=== PATIENT | female | born 1955 | race Caucasian/White ===

== ENCOUNTER → 2017-08-25 | Outpatient (CLI) | payer BC ==
[2017-08-25 13:14] VITALS: BMI 54.8
== END | disposition home or self-care (01) ==
LOC: BARWHC3 09:20
PROVIDERS: ATTEND Surgery
DX: E66.01 Morbid (severe) obesity due to excess calories (principal)
CPT/HCPCS: 97804

== ENCOUNTER 2017-09-22 07:46 | Inpatient (IN) | payer BC ==
[~2017-09-22 07:46] MED LIST: DEXAMETHASONE SOD PHOSPHATE 10 MG/ML 1 ML VIAL IV ONE; ENOXAPARIN 40 MG/0.4 ML SYRINGE SQ ONE; HYDROmorphone 0.5 MG/0.5 ML SYRINGE IVP PRN; LACTATED RINGERS 1,000 ML IV SCH; LIDOCAINE 1% 20 ML VIAL (10MG/ML) FOR IV START INTRADERMA PRN; ONDANSETRON 4 MG/2 ML VIAL IVP ONE; SCOPOLAMINE 1.5MG/72HR PATCH TRANSDERM ONE
[2017-09-22] MEDS ORDERED: METHYLENE BLUE 30 MG in DEXTROSE 5% IN WATER 500 ML IRRIGATION ONE ×2 (07:49)
--- NOTE | 2017-09-22 08:34 | P.GSHP ---
History of Present Illness H&P Date: 09/22/17 Chief Complaint: Morbid obesity Patient well-known to our service. Patient underwent laparoscopic banding over 10 years ago. She has had issues with intermittent vomiting and reflux. She believes that she had a hiatal hernia repaired at the time of her initial LAP- BAND placement. Suffers from osteoarthritis which is in part related to her morbid recently. Not interested in gastric bypass. No history of DVT. Recent upper endoscopy negative for hiatal hernia. Past Medical History Past Medical History: GERD/Reflux, Hypertension, Osteoarthritis (OA), Thyroid Disorder Additional Past Medical History / Comment(s): HAD RADIATION PILL FOR HYPERTHYROID, recent bronchitis now resolved History of Any Multi-Drug Resistant Organisms: None Reported Past Surgical History: Bariatric Surgery, Hysterectomy, Joint Replacement, Orthopedic Surgery Additional Past Surgical History / Comment(s): lap band, right knee replaced, ORIF right leg, ovarian cystectomy, ORIF right leg, colonoscopy Past Anesthesia/Blood Transfusion Reactions: Motion Sickness Smoking Status: Former smoker - Past Family History Mother Family Medical History: Cancer Medications and Allergies Home Medications Medication Instructions Recorded Confirmed Type Furosemide [Lasix] 10 mg PO DAILY PRN 05/22/17 09/10/17 History LORazepam [Ativan] 0.5 mg PO DAILY PRN 05/22/17 09/10/17 History Propranolol [Inderal] 10 mg PO DAILY 05/22/17 09/10/17 History Ranitidine HCl [Zantac] 150 mg PO BID 05/22/17 09/10/17 History Ergocalciferol [Vitamin D2] 50,000 unit PO TH 06/02/17 09/10/17 History Omeprazole [PriLOSEC] 20 mg PO AC-BRKFST #90 cap 06/04/17 09/10/17 Rx traMADol HCl [Ultram] 50 mg PO Q6H PRN 06/04/17 09/10/17 History HYDROcodone/APAP 5-325MG [[place] 1 tab PO Q6HR PRN 08/26/17 09/10/17 History 5-325] Albuterol Inhaler [Ventolin Hfa 1 - 2 puff INHALATION Q6HR PRN 09/10/17 History Inhaler] Allergies Allergy/AdvReac Type Severity Reaction Status Date / Time latex Allergy Rash/Hives Verified 09/10/17 17:38 Penicillins Allergy Rash/Hives Verified 09/10/17 17:38 Surgical - Exam Physical exam: General: Well-developed, well-nourished HEENT: Normocephalic, sclerae nonicteric Abdomen: Nontender, nondistended Extremities: No edema Neuro: Alert and oriented Assessment and Plan (1) Morbid obesity Narrative/Plan: Will proceed with lap band removal and planned sleeve gastrectomy. Risks of bleeding, infection, stricture, perforation, abscess, leak, fistula formation, peritonitis, or weight loss, chronic reflux, conversion to an open procedure, aborting the procedure, CO, PE, DVT, and . The patient understands wished to proceed. Current Visit: No Status: Acute Code(s): E66.01 - MORBID (SEVERE) OBESITY DUE TO EXCESS CALORIES SNOMED Code(s): 497104698
[2017-09-22] MEDS ORDERED: LIDOCAINE 1% INJ 10MG/ML (20 ML MDV) ONE (09:03)
[2017-09-22] MEDS ORDERED: GLYCOPYRROLATE 0.2 MG/ML 2 ML VIAL ONE (09:03)
[2017-09-22] MEDS ORDERED: PROPOFOL 10 MG/ML 20 ML VIAL IV ONE (09:03)
[2017-09-22] MEDS ORDERED: NEOSTIGMINE 1 MG/ML 10 ML VIAL ONE (09:03)
[2017-09-22] MEDS ORDERED: MIDAZOLAM 2 MG/2 ML VIAL ONE (09:03)
[2017-09-22] MEDS ORDERED: fentaNYL (PF) 50 MCG/ML 2 ML AMP ONE (09:03)
[2017-09-22] MEDS ORDERED: SUCCINYLCHOLINE CHLORIDE VIAL 200 MG/10 ML VIAL IV ONE (09:03)
[2017-09-22] MEDS ORDERED: METHYLENE BLUE 10 MG/ML (10 ML VIAL) ONE (09:03)
[2017-09-22] MEDS ORDERED: VECURONIUM 10 MG VIAL IV ONE (09:03)
[2017-09-22] MEDS ORDERED: KETAMINE 10 MG/ML 20 ML VIAL ONE (09:03)
[2017-09-22] MEDS ORDERED: HYDROcodone/APAP 10-325MG 1 EACH TAB ONE (09:03)
[2017-09-22] MEDS ORDERED: KETOROLAC 30 MG/ML 1 ML VIAL ONE (09:03)
[2017-09-22] MEDS ORDERED: ESMOLOL 100 MG/10 ML VIAL ONE (09:03)
[2017-09-22] MEDS ORDERED: HYDROmorphone (PF) 1 MG/ML ONE (09:03)
[2017-09-22] MEDS ORDERED: BUPIVACAINE (PF) 0.25% 30 ML VIAL SQ ONE ×2 (09:37)
[2017-09-22] MEDS ORDERED: LACTATED RINGERS 1,000 ML IV ONE (10:29)
[2017-09-22] MEDS ORDERED: diphenhydrAMINE 50 MG/ML 1 ML VIAL IVP PRN (11:45)
[2017-09-22] MEDS ORDERED: NALOXONE 0.4 MG/ML 1 ML VIAL IV PRN (11:45)
[2017-09-22] MEDS ORDERED: ACETAMINOPHEN IV (For NPO) 1,000 MG in EMPTY BAG 1 BAG IVPB ONE (12:00)
--- NOTE | 2017-09-22 12:21 | P.OP ---
Date of Procedure: 09/22/17 Procedure(s) Performed: PREOPERATIVE DIAGNOSIS: Morbid obesity, band intolerance, osteoporosis POSTOPERATIVE DIAGNOSIS: Same PROCEDURE: Laparoscopic lap band removal with sleeve gastrectomy SURGEON: Claudette EBL: Minimal ANESTHESIA: General COMPLICATIONS: None OPERATIVE PROCEDURE: Patient was placed in the operating table in the supine position. She was placed under general anesthesia at that time. The abdomen was prepped and draped in sterile fashion after the patient was placed in lithotomy. The previous port incision was localized and then incised using a scalpel. The port was easily excised using electrocautery. The port was noted to have some serous fluid around it. The sutures previously placed to hold the port in place were no longer present and the port was floating freely. Entrance into the peritoneal cavity occurred using a 5 mm optical trocar through the old trocar entrance site. Insufflation took place to 15 mmHg. A right subxiphoid 5 mm trocar was placed. This was then removed and the medium Kiel hook was used to elevate the left lobe of the liver anteriorly. An additional 5 mm trocar was placed under direct visualization in the left lateral upper quadrant. An additional 5 mm trocar was placed in the right upper quadrant. A 15 mm supra umbilical trocar was then placed. There were very little adhesions around the band as well. The band plication was divided using sharp dissection with the disposable sheers. There was no visible hiatal hernia. At that point I moved to the mid aspect of the greater curvature the stomach. The short gastric vasculature was divided using a LigaSure device proximally. I then switched and divided the short gastrics distally to a 3-4 cm from the pylorus. The dissection took place up to the left diaphragmatic crura at that point. The posterior short gastrics were likewise divided using the LigaSure device. Once the stomach was fully mobilized the blunt tipped 40- British bougie dilator was advanced into the stomach and advanced all the way to the prepyloric location. A black echelon 60 stapler was utilized and fired tangentially across the antrum taking care to avoid narrowing at the incisura angularis. Subsequent firings of the stapler took place. A total of 6 green echelon 60 staplers with seam guard took place proximally staying on the outer edge of our dilator. The previous band site had a very thin rind that was excised sharply. The oral gastric tube was reinserted. The stomach was insufflated with approximately 100 mL of methylene blue. No evidence of leak or obstruction was seen. Tisseel fibrin glue was then sprayed along the entire length of the staple line. No bleeding was identified. The distal aspect of the sleeve was then reapproximated to the gastrosplenic and gastrocolic ligament using a short running 20 strata fix suture. This was done to prevent kinking or twisting of the sleeve. The stomach remnant was removed from the 15 mm trocar site without difficulty. The fascia at the 15 more site was closed using interrupted 0 Vicryl sutures with the laparoscopic suture passer and Tej Emma technique. The insufflation was evacuated. The skin at all 5 incisions were closed using 4-0 Monocryl sutures. A 3-0 Vicryl subcutaneous suture was placed at the previous port site. Dermabond was used on the incision site. DISPOSITION: Stable to recovery room
[2017-09-22] MEDS: 0.9% NACL WITH KCL 20 MEQ/L 1,000 ML IV SCH ×2 (12:36→20:09)
[2017-09-22] MEDS: ALBUTEROL NEBULIZED 2.5 MG/3 ML INHALATION SCH ×3 (12:59→20:19)
[2017-09-22] MEDS: KETOROLAC 30 MG/ML 1 ML VIAL IVP SCH ×2 (13:12→17:35)
[2017-09-22] MEDS: HYDROmorphone 0.5 MG/0.5 ML SYRINGE IVP PRN ×2 (13:13→20:09)
[2017-09-22 15:15] VITALS: BMI 52.8
--- NOTE | 2017-09-22 16:16 | P.CONS ---
History of Present Illness - Reason for Consult Consult date: 09/22/17 Medical management of hypertension hypothyroidism and postoperative care - Chief Complaint Sleeve gastrectomy surgery - History of Present Illness Patient is a 62-year-old female with a known history of morbid obesity and history of laparoscopic banding surgery done about 10 years ago, hypertension, hypothyroidism was admitted to the hospital for sleeve gastrectomy and LAP-BAND removal. Patient has been having GERD-like symptoms and not tolerated lab done very well. Patient had endoscopy done recently showed no evidence of hiatal hernia. Patient was admitted to the hospital for elective sleeve gastrectomy. Patient tolerated the surgery very well. Currently pain is controlled. Patient does have some nausea. No episodes of vomiting. No fever no chills. No chest pain or short of breath. No headache or dizziness. Review of Systems Constitutional: Patient denies any fever or chills . No generalized weakness or weight loss. Abdomen: Patient denied nausea vomiting and diarrhea and abdominal pain. Cardiovascular: Patient denies any chest pain or short of breath no palpitations. Respiratory: patient denied any cough is from production. No shortness of breath Neurologic: Patient denied any numbness or tingling headache. Musculoskeletal: Patient denies any complaints of joint swelling or deformity. Skin: Negative Psychiatric: Negative Endocrine: No heat or cold intolerance. No recent weight gain. Genitourinary: No dysuria or hematuria. All other 14 point ROS negative except the above Past Medical History Past Medical History: GERD/Reflux, Hypertension, Osteoarthritis (OA), Thyroid Disorder Additional Past Medical History / Comment(s): HAD RADIATION PILL FOR HYPERTHYROID, recent bronchitis now resolved History of Any Multi-Drug Resistant Organisms: None Reported Past Surgical History: Bariatric Surgery, Hysterectomy, Joint Replacement, Orthopedic Surgery Additional Past Surgical History / Comment(s): lap band, right knee replaced, ORIF right leg, ovarian cystectomy, ORIF right leg, colonoscopy Past Anesthesia/Blood Transfusion Reactions: Motion Sickness Smoking Status: Former smoker - Past Family History Mother Family Medical History: Cancer Medications and Allergies Home Medications Medication Instructions Recorded Confirmed Type Furosemide [Lasix] 10 mg PO DAILY PRN 05/22/17 09/22/17 History LORazepam [Ativan] 0.5 mg PO DAILY PRN 05/22/17 09/22/17 History Propranolol [Inderal] 10 mg PO DAILY 05/22/17 09/22/17 History Ranitidine HCl [Zantac] 150 mg PO BID 05/22/17 09/22/17 History Ergocalciferol [Vitamin D2] 50,000 unit PO TH 06/02/17 09/22/17 History Omeprazole [PriLOSEC] 20 mg PO AC-BRKFST #90 cap 06/04/17 09/22/17 Rx traMADol HCl [Ultram] 50 mg PO Q6H PRN 06/04/17 09/22/17 History HYDROcodone/APAP 5-325MG [[place] 1 tab PO Q6HR PRN 08/26/17 09/22/17 History 5-325] Albuterol Inhaler [Ventolin Hfa 1 - 2 puff INHALATION RT-Q6H PRN 09/10/17 History Inhaler] Omeprazole [PriLOSEC] 20 mg PO AC-BRKFST #90 cap 09/22/17 Rx Allergies Allergy/AdvReac Type Severity Reaction Status Date / Time latex Allergy Rash/Hives Verified 09/22/17 12:47 Penicillins Allergy Rash/Hives Verified 09/22/17 12:47 Physical Exam Vitals: Vital Signs Temp Pulse Pulse Resp BP Pulse Ox 09/22/17 13:10 54 L 16 09/22/17 13:03 59 L 16 95 09/22/17 12:15 75 16 134/71 96 09/22/17 12:00 72 16 133/71 96 09/22/17 11:45 71 16 139/71 95 09/22/17 11:30 79 16 140/73 95 09/22/17 11:22 97 F L 88 14 137/75 93 L 09/22/17 08:29 98.3 F 81 16 130/84 99 Intake and Output 09/21/17 09/22/17 09/22/17 22:59 06:59 14:59 Intake Total 1400 Output Total 115 Balance 1285 Intake: IV 1400 Output: Urine 100 Estimated Blood Loss 15 PHYSICAL EXAMINATION: Patient is lying in the bed comfortably, no acute distress, awake alert and oriented.. Morbidly obese HEENT: Normocephalic. Neck is supple. Pupils reactive. Nostrils clear. Oral cavity is moist. Ears reveal no drainage. Neck reveals no JVD, carotid bruits, or thyromegaly. CHEST EXAMINATION: Trachea is central. Symmetrical expansion. Lung horne clear to auscultation and percussion. CARDIAC: Normal S1, S2 with no gallops. No murmurs ABDOMEN: Soft. Soreness at surgical site. Bowel sounds sluggish. No organomegaly. No abdominal bruits. Extremities: reveal no edema. No clubbing or cyanosis Neurologically awake, alert, oriented x3 with well-coordinated movements. No focal deficits noted Skin: No rash or skin lesions. Psychiatric: Coperative. Nonsuicidal Musculoskeletal: No joint swelling or deformity. Normal range of motion. Assessment and Plan Assessment: Status post sleeve gastrectomy and removal of LAP-BAND's. Postoperative day 0 Morbid obesity with history of LAP-BAND surgery 10 years ago Hypertension Hypothyroidism Osteoarthritis History of radioactive iodine therapy for hyperthyroidism GERD Plan: Patient will be continued on pain medications and bowel regimen. Protonix will be continued for now. Continue the home blood pressure medications and encourage ambulation. Incentive spirometry. DVT prophylaxis. Will follow up closely. Further recommendations based on the clinical course. Thank you for your consult.
[2017-09-22] MEDS: ONDANSETRON 4 MG/2 ML VIAL IVP PRN (20:09)
[2017-09-22] MEDS: SIMETHICONE 40 MG/0.6 ML DROPS 2,000 MG/30 ML BOTTLE PO PRN (20:09)
[2017-09-23] MEDS: HYDROmorphone 0.5 MG/0.5 ML SYRINGE IVP PRN ×2 (03:08→11:55)
[2017-09-23] MEDS: SIMETHICONE 40 MG/0.6 ML DROPS 2,000 MG/30 ML BOTTLE PO PRN (03:09)
[2017-09-23] MEDS: ONDANSETRON 4 MG/2 ML VIAL IVP PRN ×2 (03:09→11:50)
[2017-09-23] MEDS: KETOROLAC 30 MG/ML 1 ML VIAL IVP SCH ×5 (03:47→23:06)
[2017-09-23] MEDS: HYOSCYAMINE ORAL DROPS 1.875 MG/15 ML BOTTLE PO PRN ×2 (07:49→19:30)
[2017-09-23 07:50] LABS: Basophils % (A) 0 %; Eosinophils % (A) 0 %; HCT 36.9 % (34.0-46.0); Hypochromasia Slight; Lymphocytes # (A) 1.8 k/uL (1.0-4.8); Lymphocytes % (A) 24 %; MCH 26.9 pg (25.0-35.0); MCHC 29.9 g/dL (31.0-37.0); MCV 89.7 fL (80.0-100.0); Monocytes # (A) 0.5 k/uL (0-1.0); Monocytes % (A) 7 %; Neutrophils # (A) 5.1 k/uL (1.3-7.7); Neutrophils % (A) 67 %; Platelet Count 166 k/uL (150-450); RBC 4.11 m/uL (3.80-5.40); RDW 14.4 % (11.5-15.5); WBC 7.6 k/uL (3.8-10.6)
[2017-09-23 08:07] LABS: Anion Gap 7 mmol/L; Blood Urea Nitrogen 11 mg/dL (7-17); Calcium 8.7 mg/dL (8.4-10.2); Carbon Dioxide 28 mmol/L (22-30); Chloride 106 mmol/L (98-107); Magnesium 1.6 mg/dL (1.6-2.3); Phosphorus 3.9 mg/dL (2.5-4.5); Potassium 4.2 mmol/L (3.5-5.1); Sodium 141 mmol/L (137-145)
[2017-09-23] MEDS: 0.9% NACL WITH KCL 20 MEQ/L 1,000 ML IV SCH (08:14)
[2017-09-23] MEDS: PANTOPRAZOLE 40 MG/10 ML VIAL IV SCH (08:24)
[2017-09-23] MEDS: ENOXAPARIN 60 MG/0.6 ML SYRINGE SQ SCH ×2 (08:25→22:19)
[2017-09-23] MEDS: 1: MVI, ADULT NO.4 WITH VIT K 10 ML, THIAMINE 100 MG, FOLIC ACID 1 MG, POTASSIUM CHLORID IV SCH ×12 (08:25→19:27)
[2017-09-23] MEDS: ALBUTEROL NEBULIZED 2.5 MG/3 ML INHALATION SCH ×4 (08:40→20:31)
--- NOTE | 2017-09-23 09:24 | FL ---
EXAMINATION TYPE: FL UGI DATE OF EXAM: 09/23/2017 CLINICAL HISTORY: Status post gastric sleeve Contrast: Omnipaque 350 50 mL 44sec fluoro time. 6 images submitted. The patient ingested contrast without difficulty or delay. Noted are postsurgical changes of gastric sleeve. There is no evidence for leak or obstruction. Contrast is noted within the duodenum. IMPRESSION: Post-surgical change of gastric sleeve without evidence for obstruction or leak at this point in time.
--- NOTE | 2017-09-23 11:09 | P.PN ---
<Bettie Pinon - Last Filed: 09/23/17 11:10> Subjective Progress Note Date: 09/23/17 62-year-old female seen and examined at bedside this morning. Patient reports "had a terrible night could not sleep there were multiple reasons room cold too much noise. Patient reports no nausea vomiting. States pain medication effective for pain control. Patient is postop 22 of September laparoscopic lap band removal with sleeve gastrectomy for morbid obesity upper GI done this morning show postsurgical change gastric sleeve without evidence of obstruction or leak. Labs were reviewed white count 7.6 hemoglobin 19 December 1.6 Objective - Vital Signs Vital signs: Vital Signs Temp 97.8 F 09/23/17 07:00 Pulse 86 09/23/17 08:52 Resp 16 09/23/17 07:00 BP 129/65 09/23/17 07:00 Pulse Ox 92 L 09/23/17 09:02 Intake & Output 09/22/17 09/23/17 09/23/17 18:59 06:59 18:59 Intake Total 1400 800 Output Total 115 Balance 1285 800 Weight 126.81 kg Intake: IV 1400 Intake, IV Titration 800 Amount 0.9% NaCl with KCl 20 Meq 800 /l 1,000 ml @ 150 mls/hr IV .Q6H40M [facility] Rx#: [id number] Output: Urine 100 Estimated Blood Loss 15 Other: # Voids 3 - Exam GENERAL APPEARANCE: 62-year-old female is alert, oriented,x 3 in no acute distress. VITAL SIGNS: Reviewed HEENT: Head is normocephalic and atraumatic. Pupils are equal and reactive. The nares are patent. Oropharynx is clear without lesions. NECK: Supple without lymphadenopathy. Traches midline. HEART: S1, S2. Regular rate and rhythm. Heart rate 70s to 80s no murmur noted denying chest pain LUNGS: No crackles or wheezes are heard. No cough noted sats on 2 L 99% room air 92% no shortness of breath noted ABDOMEN: Soft, obese surgical dressings to surgical site dry nondistended surgical tenderness appropriate bowel tones present no nausea no vomiting no stool EXTREMITIES: Normal skin color and turgor. No cyanosis, rash, ulceration, clubbing or edema. Radial pedal pulses are 2/4 bilaterally. NEUROLOGICAL: No focal deficits. Strength and sensation are grossly intact. - Labs CBC & Chem 7: 09/23/17 07:06 09/23/17 07:06 Labs: Abnormal Lab Results - Last 24 Hours (Table) 09/23/17 Range/Units 07:06 Hgb 11.0 L (11.4-16.0) gm/dL MCHC 29.9 L (31.0-37.0) g/dL Assessment and Plan Assessment: Impression Morbid obesity BMI 52 due to excessive calories Osteoarthritis chronic History of laparoscopic LAP-BAND over 10 years prior with band intolerance History of Episodes of intermittent vomiting and reflux September 22 laparoscopic lap band removal with sleeve gastrectomy Hypothyroid on supplements Hypertension Hypo-magnesium Plan 2 g of IV magnesium to be given now Bariatric clear diet as ordered Pain control Continue postop bariatric care DVT and GI prophylaxis Increase activity as tolerated Repeat labs in the morning The above impression and plan of care have been discussed and directed by signing physician. Bettie Pinon nurse practitioner acting as scribe for signing physician. <Venkata Wilkins - Last Filed: 09/23/17 13:17> Objective - Vital Signs Vital signs: Vital Signs Temp 97.8 F 09/23/17 07:00 Pulse 92 09/23/17 12:30 Resp 16 09/23/17 07:00 BP 129/65 09/23/17 07:00 Pulse Ox 92 L 09/23/17 09:02 Intake & Output 09/22/17 09/23/17 09/23/17 18:59 06:59 18:59 Intake Total 1400 800 Output Total 115 Balance 1285 800 Weight 126.81 kg Intake: IV 1400 Intake, IV Titration 800 Amount 0.9% NaCl with KCl 20 Meq 800 /l 1,000 ml @ 150 mls/hr IV .Q6H40M [facility] Rx#: [id number] Output: Urine 100 Estimated Blood Loss 15 Other: # Voids 3 - Labs CBC & Chem 7: 09/23/17 07:06 09/23/17 07:06 Labs: Abnormal Lab Results - Last 24 Hours (Table) 09/23/17 Range/Units 07:06 Hgb 11.0 L (11.4-16.0) gm/dL MCHC 29.9 L (31.0-37.0) g/dL Assessment and Plan Assessment: As above. Patient doing well. Upper GI reviewed shows no evidence of leak or obstruction. Begin bariatric clears. Increase ambulation. Monitor oral intake. (1) Morbid obesity Current Visit: Yes Status: Acute Code(s): E66.01 - MORBID (SEVERE) OBESITY DUE TO EXCESS CALORIES SNOMED Code(s): 111527638
[2017-09-23] MEDS: MAGNESIUM SULFATE-D5W PMX 1 GM in DEXTROSE/WATER 1 100ML.BAG IVPB SCH ×2 (13:11→14:08)
[2017-09-24] MEDS: SIMETHICONE 40 MG/0.6 ML DROPS 2,000 MG/30 ML BOTTLE PO PRN ×3 (03:41→21:10)
[2017-09-24] MEDS: 1: MVI, ADULT NO.4 WITH VIT K 10 ML, THIAMINE 100 MG, FOLIC ACID 1 MG, POTASSIUM CHLORID IV SCH ×6 (03:42)
[2017-09-24] MEDS: HYDROmorphone 0.5 MG/0.5 ML SYRINGE IVP PRN ×2 (03:52→10:30)
[2017-09-24] MEDS: KETOROLAC 30 MG/ML 1 ML VIAL IVP SCH (06:19)
[2017-09-24] MEDS: ALBUTEROL NEBULIZED 2.5 MG/3 ML INHALATION SCH ×4 (07:15→19:39)
[2017-09-24 07:59] LABS: Anion Gap 6 mmol/L; Blood Urea Nitrogen 12 mg/dL (7-17); Calcium 8.3 mg/dL (8.4-10.2); Carbon Dioxide 26 mmol/L (22-30); Chloride 108 mmol/L (98-107); Glucose 83 mg/dL (74-99); Magnesium 1.8 mg/dL (1.6-2.3); Potassium 4.6 mmol/L (3.5-5.1); Sodium 140 mmol/L (137-145)
[2017-09-24] MEDS ORDERED: BISACODYL 5 MG TABLET.DR PO PRN (08:00)
[2017-09-24] MEDS: PANTOPRAZOLE 40 MG/10 ML VIAL IV SCH (08:46)
[2017-09-24] MEDS: ENOXAPARIN 60 MG/0.6 ML SYRINGE SQ SCH ×2 (08:46→21:10)
[2017-09-24] MEDS: ONDANSETRON 4 MG/2 ML VIAL IVP PRN ×2 (10:42→17:58)
--- NOTE | 2017-09-24 11:21 | P.PN ---
Subjective Progress Note Date: 09/24/17 Principal diagnosis: Morbid obesity Patient doing much better today. Denies abdominal pain. Tolerating diet. No nausea or vomiting. She is ambulating. She drank approximately 15 ounces of liquids yesterday. She anticipates drinking more today. She is afebrile. Objective - Vital Signs Vital signs: Vital Signs Temp 98.1 F 09/24/17 01:35 Pulse 80 09/24/17 07:25 Resp 18 09/24/17 07:15 BP 135/77 09/24/17 01:35 Pulse Ox 95 09/24/17 07:15 Intake & Output 09/23/17 09/24/17 09/24/17 18:59 06:59 18:59 Intake Total 1971.2 1400 600 Balance 1971.2 1400 600 Intake: Intake, IV Titration 1970.2 800 Amount 0.9% NaCl with KCl 20 Meq 800 /l 1,000 ml @ 100 mls/hr IV .BY DURATION ON LICENSE OF [facility] Rx#: [id number] Magnesium Sulfate-D5w Pmx 200 1 gm In Dextrose/Water 1 100ml.bag @ 100 mls/hr IVPB Q1H [facility] Rx#: [id number] Mvi, Adult No.4 with Vit 1771.2 K 10 ml Thiamine 100 mg Folic Acid 1 mg Potassium Chloride 20 meq In Sodium Chloride 0.9% 1, 000 ml @ 100 mls/hr IV . BY DURATION ON LICENSE OF [facility] Rx#: [id number] Oral 600 600 Other: Voiding Method Toilet # Voids 1 - Exam Abdomen: Soft, nondistended, incisions clean and dry, minimal tenderness - Labs CBC & Chem 7: 09/23/17 07:06 09/24/17 06:39 Labs: Abnormal Lab Results - Last 24 Hours (Table) 09/24/17 Range/Units 06:39 Chloride 108 H (98-107) mmol/L Calcium 8.3 L (8.4-10.2) mg/dL Assessment and Plan (1) Morbid obesity Narrative/Plan: Continue bariatric clear liquids. Continue ambulation. Possible discharge later today depending on the volume taken by the patient. Current Visit: Yes Status: Acute Code(s): E66.01 - MORBID (SEVERE) OBESITY DUE TO EXCESS CALORIES SNOMED Code(s): 756782034
--- NOTE | 2017-09-24 13:19 | P.PN ---
Subjective Progress Note Date: 09/24/17 Progress note being dictated for Dr. Gomes Interval history: This is a 62-year-old female status post sleeve gastrectomy and removal of lap band in a patient with history of lap band surgery 10 years ago. Mild nausea earlier.Upper GI this morning reporting no leak, no obstruction. diet advanced to bariatric clears. Receiving magnesium replacement supplements. Denies chest pain, palpitations or increasing shortness of breath. 09/24/17 no overnight events. Afebrile. Magnesium 1.8. Tolerating clear liquids, with close monitoring of intake. Nausea subsided. Has not yet ambulated this morning. Pain better controlled. Denies chest pain, palpitations or increasing shortness of breath. Objective - Vital Signs Vital signs: Vital Signs Temp 98.9 F 09/24/17 07:00 Pulse 88 09/24/17 11:53 Resp 18 09/24/17 11:43 BP 113/65 09/24/17 07:00 Pulse Ox 95 09/24/17 07:15 Intake & Output 09/23/17 09/24/17 09/24/17 18:59 06:59 18:59 Intake Total 1971.2 1400 600 Balance 1971.2 1400 600 Weight 126.81 kg Intake: Intake, IV Titration 1970.2 800 Amount 0.9% NaCl with KCl 20 Meq 800 /l 1,000 ml @ 100 mls/hr IV .BY DURATION [facility] Rx#: [id number] Magnesium Sulfate-D5w Pmx 200 1 gm In Dextrose/Water 1 100ml.bag @ 100 mls/hr IVPB Q1H [facility] Rx#: [id number] Mvi, Adult No.4 with Vit 1771.2 K 10 ml Thiamine 100 mg Folic Acid 1 mg Potassium Chloride 20 meq In Sodium Chloride 0.9% 1, 000 ml @ 100 mls/hr IV . BY DURATION [facility] Rx#: [id number] Oral 600 600 Other: Voiding Method Toilet # Voids 1 - Exam PHYSICAL EXAM: VITAL SIGNS: As above GENERAL: Sitting up in bed, no acute distress HEENT: Conjunctivae normal. eyes normal. Oral mucosa moist NECK: No JVD. No thyroid enlargement. No LNs CARDIOVASCULAR: S1, S2 muffled. No murmur RESPIRATION: Breath sounds diminished in the bases. No rhonchi or crackles. ABDOMEN: Soft, status post abdominal surgery, positive bowel sounds LEGS: No edema. no swelling PSYCHIATRY: Alert and oriented -3, mood and affect normal. NERVOUS SYSTEM: Cranial N 2-12 grossly normal. Moves all 4 limbs. Diffuse weakness No focal deficits. Skin: no ulcer no rash Joints: No active swelling. No inflammation. - Labs CBC & Chem 7: 09/23/17 07:06 09/24/17 06:39 Labs: Abnormal Lab Results - Last 24 Hours (Table) 09/24/17 Range/Units 06:39 Chloride 108 H (98-107) mmol/L Calcium 8.3 L (8.4-10.2) mg/dL Assessment and Plan Assessment: Status post sleeve gastrectomy and removal of LAP-BAND's. Morbid obesity with history of LAP-BAND surgery 10 years ago Hypertension Hypothyroidism Osteoarthritis History of radioactive iodine therapy for hyperthyroidism GERD Hypomagnesemia Plan: Continue on current medication regime , PPI, monitoring and symptomatic treatment. Close monitoring of intake. Potential discharge in progress for today as per surgery. Ambulation encouraged. Aggressive pulmonary toileting. Further recommendations to follow.Thank you for your consult. The impression and plan of care has been dictated as directed. : I performed a history and examination of this patient, discussed the same with the dictator. I agree with the dictator's note ,documented as a scribe. Any additional findings or plans will be noted.
[2017-09-24] MEDS ORDERED: HYDROcodone/APAP 5-325MG 1 EACH TAB PO PRN (13:22)
--- NOTE | 2017-09-24 15:43 | US ---
EXAMINATION TYPE: US venous doppler duplex LE LT DATE OF EXAM: 09/24/2017 3:10 PM COMPARISON: NONE CLINICAL HISTORY: r/o blood clot. Bariatric surgery. Heparin shot. No hx of DVT. Left leg pain. SIDE PERFORMED: Left TECHNIQUE: The lower extremity deep venous system is examined utilizing real time linear array sonog marlyn with graded compression, doppler sonography and color-flow sonography. VESSELS IMAGED: External Iliac Vein (EIV) Common Femoral Vein Deep Femoral Vein Greater Saphenous Vein * Femoral Vein Popliteal Vein Small Saphenous Vein * Proximal Calf Veins (* superficial vessels) Left Leg: Appears negative for DVT IMPRESSION: Grayscale, color doppler, spectral doppler imaging performed of the deep veins of the lo wer extremities. There is normal flow, compressibility, vascular waveforms. No evident deep venous thrombosis at or above the left knee
[2017-09-24] MEDS: HYDROcodone/APAP 7.5-325MG 1 EACH TAB PO PRN ×2 (18:30→22:34)
[2017-09-24] MEDS: HYOSCYAMINE ORAL DROPS 1.875 MG/15 ML BOTTLE PO PRN ×2 (18:35→21:11)
[2017-09-24 20:18] VITALS: RESP 16
[2017-09-25] MEDS: ONDANSETRON 4 MG/2 ML VIAL IVP PRN (03:10)
[2017-09-25] MEDS: SIMETHICONE 40 MG/0.6 ML DROPS 2,000 MG/30 ML BOTTLE PO PRN (03:19)
[2017-09-25] MEDS: HYOSCYAMINE ORAL DROPS 1.875 MG/15 ML BOTTLE PO PRN (03:19)
[2017-09-25] MEDS: HYDROcodone/APAP 7.5-325MG 1 EACH TAB PO PRN ×2 (03:19→08:04)
[2017-09-25] MEDS: 1: MVI, ADULT NO.4 WITH VIT K 10 ML, THIAMINE 100 MG, FOLIC ACID 1 MG, POTASSIUM CHLORID IV SCH ×12 (07:09→08:06)
[2017-09-25 08:01] VITALS: BP 136/75; PULSE 79; TEMP 98.8
[2017-09-25] MEDS: PANTOPRAZOLE 40 MG/10 ML VIAL IV SCH (08:06)
[2017-09-25] MEDS: ENOXAPARIN 60 MG/0.6 ML SYRINGE SQ SCH (08:06)
[2017-09-25] MEDS: ALBUTEROL NEBULIZED 2.5 MG/3 ML INHALATION SCH ×2 (09:01→12:35)
--- NOTE | 2017-09-25 09:42 | XR ---
EXAMINATION TYPE: XR knee complete LT DATE OF EXAM: 09/25/2017 COMPARISON: NONE HISTORY: Left knee pain TECHNIQUE: Four views are submitted. FINDINGS: Severe arthropathy of the knee with near complete loss of joint spaces and hypertrophic changes. No e rosive changes. Soft tissue ossification noted.. Osseous structures are intact. No acute fracture s een. IMPRESSION: 1. Severe osteoarthritis with complete loss of joint spaces.
--- NOTE | 2017-09-25 10:17 | P.CNOR ---
History of Present Illness - [facility] Consult date: 09/25/17 Requesting physician: Anibal Ware Consult reason: joint pain History of present illness: Patient is a pleasant 62-year-old female seen at bedside this morning. Orthopedics was asked to see for left knee pain. She is status post bariatric surgery. She states she's had chronic bilateral knee pain where she had a previous right TKA done in [facility]. Her left knee has been chronically bothering her but worsened recently after which she feels like she twisted her knee. She denies hearing a pop or snap. She doesn't feel her knee is unstable. She's had no severe swelling, erythema, ecchymoses, fever or chills. She has no calf pain. She denies numbness or tingling as well. Further review of systems is negative Review of Systems All systems: negative Constitutional: Denies chills, Denies fever Eyes: denies blurred vision, denies pain Ears, nose, mouth and throat: Denies headache, Denies sore throat Cardiovascular: Denies chest pain, Denies shortness of breath Respiratory: Denies cough Gastrointestinal: Denies abdominal pain, Denies diarrhea, Denies nausea, Denies vomiting Genitourinary: Denies dysuria, Denies hematuria Musculoskeletal: Denies myalgias Integumentary: Denies pruritus, Denies rash Neurological: Denies numbness, Denies weakness Psychiatric: Denies anxiety, Denies depression Endocrine: Denies fatigue, Denies weight change Past Medical History Past Medical History: GERD/Reflux, Hypertension, Osteoarthritis (OA), Thyroid Disorder Additional Past Medical History / Comment(s): HAD RADIATION PILL FOR HYPERTHYROID, recent bronchitis now resolved History of Any Multi-Drug Resistant Organisms: None Reported Past Surgical History: Bariatric Surgery, Hysterectomy, Joint Replacement, Orthopedic Surgery Additional Past Surgical History / Comment(s): lap band, right knee replaced, ORIF right leg, ovarian cystectomy, ORIF right leg, colonoscopy Past Anesthesia/Blood Transfusion Reactions: Motion Sickness Smoking Status: Former smoker - Past Family History Mother Family Medical History: Cancer Medications and Allergies Home Medications Medication Instructions Recorded Confirmed Type Furosemide [Lasix] 10 mg PO DAILY PRN 05/22/17 09/22/17 History LORazepam [Ativan] 0.5 mg PO DAILY PRN 05/22/17 09/22/17 History Propranolol [Inderal] 10 mg PO DAILY 05/22/17 09/22/17 History Ranitidine HCl [Zantac] 150 mg PO BID 05/22/17 09/22/17 History Ergocalciferol [Vitamin D2] 50,000 unit PO TH 06/02/17 09/22/17 History Omeprazole [PriLOSEC] 20 mg PO AC-BRKFST #90 cap 06/04/17 09/22/17 Rx traMADol HCl [Ultram] 50 mg PO Q6H PRN 06/04/17 09/22/17 History HYDROcodone/APAP 5-325MG [[place] 1 tab PO Q6HR PRN 08/26/17 09/22/17 History 5-325] Albuterol Inhaler [Ventolin Hfa 1 - 2 puff INHALATION RT-Q6H PRN 09/10/17 History Inhaler] Omeprazole [PriLOSEC] 20 mg PO AC-BRKFST #90 cap 09/22/17 Rx Allergies Allergy/AdvReac Type Severity Reaction Status Date / Time latex Allergy Rash/Hives Verified 09/22/17 12:47 Penicillins Allergy Rash/Hives Verified 09/22/17 12:47 Physical Examination Inspection of the left knee shows no bony deformity. There is no significant effusion, erythema or ecchymoses. Patellar tracking is normal. The knee is ligamentously stable. There is medial and lateral joint line tenderness. She extends to 0. Flexion is to 90. There is pain with forced flexion. LCL and MCL are intact. Negative Jose Daniel's. Calf is soft and nontender. Pulses are 1- 2+ dorsalis pedis as well as less than 2 second capillary refill. Results - Labs Labs: H & H 09/23/17 Range/Units 07:06 Hgb 11.0 L (11.4-16.0) gm/dL Hct 36.9 (34.0-46.0) % Result Diagrams: 09/23/17 07:06 09/24/17 06:39 - Diagnostic results Knee x-ray: report reviewed, image reviewed (X-rays of the left knee show severe advanced [id number] tricompartmental osteoarthritis/degenerative joint disease.) Assessment and Plan (1) Tricompartment osteoarthritis of knee Narrative/Plan: X-rays show no fractures or dislocation. She has advanced [id number] tricompartmental degenerative joint disease. She's had a previous right knee replacement done antibiotics. She'll likely need a left total knee replacement at some point but she has no acute or emergent need for intervention. Would recommend supportive care in that she likely has an acute exacerbation of her knee arthritis. She cannot take anti-inflammatories due to her recent bariatric surgery. I recommended ice 10-15 minutes, elevation, modified activities and pain management for initial treatment. If she does not improve over a short period of time she may benefit from an injection. She may follow up as an outpatient for further recommendations or intervention. Current Visit: Yes Status: Acute Priority: Medium Code(s): M17.10 - UNILATERAL PRIMARY OSTEOARTHRITIS, UNSPECIFIED KNEE SNOMED Code(s): 376222921 Time with Patient: Less than 30
--- NOTE | 2017-09-25 11:14 | P.DS ---
<Bettie Pinon M - Last Filed: 09/25/17 11:33> Providers Date of admission: 09/22/17 07:46 Attending physician: Venkata Wilkins Consults: 09/22/17 11:48 Consult Physician Routine Consulting Provider: Grey Schroeder Consult Reason/Comments: Medical management Do you want consulting provider notified?: Yes 09/24/17 18:07 Consult Physician Routine Consulting Provider: Anibal Ware Consult Reason/Comments: knee pain Do you want consulting provider notified?: Yes Primary care physician: Stated None Hospital Course: 62-year-old female presented to undergo lap band removal with sleeve gastrectomy for treatment of morbid obesity patient reports that she had been having GERD-like symptoms had not been tolerating the LAP-BAND. Postop patient developed left knee pain. Patient has a history of chronic bilateral knee pain. Patient states she had a prior right total knee replacement done in the [facility] several years ago. Patient stated that her left knee had been chronically bothering her but had gotten worse. Patient was seen by orthopedic services this admission. no swelling or redness with the last Pain to the left leg. On the day of discharge the patient did have Doppler to the left leg which was negative for a DVT additionally patient did undergo a left knee x-ray which showed severe osteoarthritis with complete loss of joint space no acute fracture. Orthopedic recommended no further orthopedic workup be done at this admission the patient could be followed in the outpatient setting by orthopedic service. Patient stated that she was anxious to be discharged uses a walker at home and lives with a spouse patient states pain medication was effective for left knee pain which had improved. Patient was felt to be hemodynamically stable and appropriate proceed with a discharge to home. Patient was seen postop by nutritional service for bariatric clear liquid diet instructions. The day of discharge patient was tolerating bariatric clear liquid diet. Impression discharge diagnosis Severe left knee pain likely due to severe osteoarthritis with complete loss of joint spaces per x-ray Super morbid obesity BMI 52.8 History of esophageal reflux symptoms Morbid obesity with a history of LAP-BAND surgery 10 years prior Status post sleeve gastrectomy and removal of the LAP-BAND done on 22 of September Osteoarthritis History of radioactive iodine therapy for hyperthyroidism Discharge summary dictated for Dr. Nguyen rounding for Dr. Wilkins The above impression and plan of care have been discussed and directed by signing physician. Bettie Pinon nurse practitioner acting as scribe for signing physician. Plan - Discharge Summary Discharge Rx Participant: Yes New Discharge Prescriptions: New Omeprazole [PriLOSEC] 20 mg PO AC-BRKFST #90 cap HYDROcodone/APAP 7.5-325MG [[place] 7.5-325] 1 each PO Q4H PRN #20 tab PRN Reason: Pain Ondansetron HCl [Zofran] 8 mg PO Q8H PRN #10 tablet PRN Reason: Nausea/Anxiety Continue LORazepam [Ativan] 0.5 mg PO DAILY PRN PRN Reason: Anxiety Ranitidine HCl [Zantac] 150 mg PO BID Furosemide [Lasix] 10 mg PO DAILY PRN PRN Reason: Edema Propranolol [Inderal] 10 mg PO DAILY Ergocalciferol [Vitamin D2 (DRISDOL)] 50,000 unit PO TH traMADol HCl [Ultram] 50 mg PO Q6H PRN PRN Reason: Pain Omeprazole [PriLOSEC] 20 mg PO AC-BRKFST #90 cap HYDROcodone/APAP 5-325MG [[place] 5-325] 1 tab PO Q6HR PRN PRN Reason: Pain Albuterol Inhaler [Ventolin Hfa Inhaler] 1 - 2 puff INHALATION RT-Q6H PRN PRN Reason: Dyspnea Discharge Medication List Furosemide [Lasix] 10 mg PO DAILY PRN 05/22/17 [History] LORazepam [Ativan] 0.5 mg PO DAILY PRN 05/22/17 [History] Propranolol [Inderal] 10 mg PO DAILY 05/22/17 [History] Ranitidine HCl [Zantac] 150 mg PO BID 05/22/17 [History] Ergocalciferol [Vitamin D2 (DRISDOL)] 50,000 unit PO TH 06/02/17 [History] Omeprazole [PriLOSEC] 20 mg PO AC-BRKFST #90 cap 06/04/17 [Rx] traMADol HCl [Ultram] 50 mg PO Q6H PRN 06/04/17 [History] HYDROcodone/APAP 5-325MG [[place] 5-325] 1 tab PO Q6HR PRN 08/26/17 [History] Albuterol Inhaler [Ventolin Hfa Inhaler] 1 - 2 puff INHALATION RT-Q6H PRN [History] Omeprazole [PriLOSEC] 20 mg PO AC-BRKFST #90 cap 09/22/17 [Rx] HYDROcodone/APAP 7.5-325MG [[place] 7.5-325] 1 each PO Q4H PRN #20 tab 09/25/17 [ Rx] Ondansetron HCl [Zofran] 8 mg PO Q8H PRN #10 tablet 09/25/17 [Rx] Follow up Appointment(s)/Referral(s): Venkata Wilkins MD [Medical Doctor] - 10/03/17 10:00 am Anibal Ware MD [STAFF PHYSICIAN] - 10/01/17 9:45 am Patient Instructions/Handouts: *Surgery [facility] - Scopalamine Patch Instructions, Laparoscopic Sleeve Gastrectomy (DC) Discharge Disposition: HOME SELF-CARE <Donna Nguyen N - Last Filed: 09/30/17 04:48> Providers Expected date of discharge: 09/25/17
--- NOTE | 2017-09-25 18:20 | P.PN ---
Subjective Progress Note Date: 09/25/17 Progress note being dictated for Dr. Gomes Interval history: This is a 62-year-old female status post sleeve gastrectomy and removal of lap band in a patient with history of lap band surgery 10 years ago. Mild nausea earlier.Upper GI this morning reporting no leak, no obstruction. diet advanced to bariatric clears. Receiving magnesium replacement supplements. Denies chest pain, palpitations or increasing shortness of breath. 09/24/17 no overnight events. Afebrile. Magnesium 1.8. Tolerating clear liquids, with close monitoring of intake. Nausea subsided. Has not yet ambulated this morning. Pain better controlled. Denies chest pain, palpitations or increasing shortness of breath. 09/25/17 yesterday afternoon patient developed left knee pain. Ultrasound ruled out DVT. Evaluated by orthopedics with no further workup recommended at this time. Tolerating bariatric diet with no nausea or vomiting. Denies pain. Ambulating in room, tolerated exertion well. Denies chest pain, palpitations or increasing shortness of breath. Denies lightheadedness dizziness or focal deficits. Objective - Vital Signs Vital signs: Vital Signs Temp 98.8 F 09/25/17 08:00 Pulse 79 09/25/17 08:00 Resp 16 09/25/17 08:00 BP 136/75 09/25/17 08:00 Pulse Ox 95 09/25/17 08:00 Intake & Output 09/24/17 09/25/17 09/25/17 18:59 06:59 18:59 Intake Total 1400 2630 Balance 1400 2630 Weight 126.81 kg Intake: Intake, IV Titration 800 1800 Amount 0.9% NaCl with KCl 20 Meq 800 1800 /l 1,000 ml @ 100 mls/hr IV .BY DURATION AKILA Rx#: [id number] Oral 600 830 Other: Voiding Method Toilet Toilet # Voids 3 - Exam PHYSICAL EXAM: VITAL SIGNS: As above GENERAL: Sitting up in bed, no acute distress HEENT: Conjunctivae normal. eyes normal. Oral mucosa moist NECK: No JVD. No thyroid enlargement. No LNs CARDIOVASCULAR: S1, S2 muffled. No murmur RESPIRATION: Breath sounds diminished in the bases. No rhonchi or crackles. ABDOMEN: Soft, status post abdominal surgery, positive bowel sounds LEGS: No edema. no swelling PSYCHIATRY: Alert and oriented -3, mood and affect normal. NERVOUS SYSTEM: Cranial N 2-12 grossly normal. Moves all 4 limbs. No focal deficits. Skin: no ulcer no rash Joints: No active swelling. No inflammation. - Labs CBC & Chem 7: 09/23/17 07:06 09/24/17 06:39 Assessment and Plan Assessment: Status post sleeve gastrectomy and removal of LAP-BAND's. Morbid obesity with history of LAP-BAND surgery 10 years ago Hypertension Hypothyroidism Osteoarthritis History of radioactive iodine therapy for hyperthyroidism GERD Hypomagnesemia Plan: Continue on current medication regime , PPI, monitoring and symptomatic treatment. Discharge in progress for today as per surgery. Aggressive pulmonary toileting reinforced . Further recommendations to follow.Thank you for your consult. The impression and plan of care has been dictated as directed. : I performed a history and examination of this patient, discussed the same with the dictator. I agree with the dictator's note ,documented as a scribe. Any additional findings or plans will be noted.
--- NOTE | 2017-10-28 16:11 | P.PN ---
Subjective Progress Note Date: 09/23/17 Progress note being dictated for Dr. Gomes Interval history: This is a 62-year-old female status post sleeve gastrectomy and removal of lap band in a patient with history of lap band surgery 10 years ago. Mild nausea earlier.Upper GI this morning reporting no leak, no obstruction. diet advanced to bariatric clears. Receiving magnesium replacement supplements. Denies chest pain, palpitations or increasing shortness of breath. Objective - Vital Signs Vital signs: Vital Signs Temp 98.7 F 09/23/17 14:00 Pulse 88 09/23/17 16:38 Resp 16 09/23/17 14:00 BP 101/66 09/23/17 14:00 Pulse Ox 90 L 09/23/17 14:00 Intake & Output 09/23/17 09/23/17 09/24/17 06:59 18:59 06:59 Intake Total 800 950 Balance 800 950 Intake: Intake, IV Titration 800 950 Amount 0.9% NaCl with KCl 20 Meq 800 /l 1,000 ml @ 150 mls/hr IV .Q6H40M AKILA Rx#: [id number] Magnesium Sulfate-D5w Pmx 200 1 gm In Dextrose/Water 1 100ml.bag @ 100 mls/hr IVPB Q1H AKILA Rx#: [id number] Mvi, Adult No.4 with Vit 750 K 10 ml Thiamine 100 mg Folic Acid 1 mg Potassium Chloride 20 meq In Sodium Chloride 0.9% 1, 000 ml @ 100 mls/hr IV . BY DURATION AKILA Rx#: [id number] Other: # Voids 3 - Exam PHYSICAL EXAM: VITAL SIGNS: As above GENERAL: Sitting up in bed, no acute distress, visiting with significant other at bedside HEENT: Conjunctivae normal. eyes normal. NECK: No JVD. No thyroid enlargement. No LNs CARDIOVASCULAR: S1, S2 muffled. No murmur RESPIRATION: Breath sounds diminished in the bases. No rhonchi or crackles. No bronchial breathing. ABDOMEN: Soft, status post abdominal surgery, positive bowel sounds LEGS: No edema. no swelling PSYCHIATRY: Alert and oriented -3, mood and affect normal. NERVOUS SYSTEM: Cranial N 2-12 grossly normal. Moves all 4 limbs. Diffuse weakness No focal deficits. No sensory deficit. Skin: no ulcer no rash Joints: No active swelling. No inflammation. - Labs CBC & Chem 7: 09/23/17 07:06 09/24/17 06:39 Labs: Abnormal Lab Results - Last 24 Hours (Table) 09/23/17 Range/Units 07:06 Hgb 11.0 L (11.4-16.0) gm/dL MCHC 29.9 L (31.0-37.0) g/dL Assessment and Plan Assessment: Status post sleeve gastrectomy and removal of LAP-BAND's. Morbid obesity with history of LAP-BAND surgery 10 years ago Hypertension Hypothyroidism Osteoarthritis History of radioactive iodine therapy for hyperthyroidism GERD Hypomagnesemia Plan: Continue on current medication regime , PPI, monitoring and symptomatic treatment. Magnesium replacement in progress. Close monitoring of electrolytes , repeat labs ordered for a.m. Diet advancement as per surgery. Aggressive pulmonary toileting with incentive spirometer reinforced. Increase ambulation as tolerated. Further recommendations to follow.discharge planning progress for tomorrow as per surgery.Thank you for your consult. The impression and plan of care has been dictated as directed. : I performed a history and examination of this patient, discussed the same with the dictator. I agree with the dictator's note ,documented as a scribe. Any additional findings or plans will be noted.
== END 2017-09-25 14:25 | disposition home or self-care (01) | DRG 621 ==
LOC: 2ORWHC 07:46 → 3SUR 11:08
PROVIDERS: ADMIT Surgery; ATTEND Surgery
PROC: 0DP64CZ Removal of Extraluminal Device from Stomach, Percutaneous Endoscopic Approach (ICD-10-PCS; principal; 2017-09-22 08:50)
PROC: 0DB64Z3 Excision of Stomach, Percutaneous Endoscopic Approach, Vertical (ICD-10-PCS; 2017-09-22 08:50)
DX: E66.01 Morbid (severe) obesity due to excess calories (principal); E83.42 Hypomagnesemia; E03.9 Hypothyroidism, unspecified; I10 Essential (primary) hypertension; K21.9 Gastro-esophageal reflux disease without esophagitis; M19.90 Unspecified osteoarthritis, unspecified site; R11.0 Nausea; M17.12 Unilateral primary osteoarthritis, left knee; M81.0 Age-related osteoporosis without current pathological fracture; Z96.651 Presence of right artificial knee joint; Z87.19 Personal history of other diseases of the digestive system; Z90.710 Acquired absence of both cervix and uterus; Z79.899 Other long term (current) drug therapy; Z87.891 Personal history of nicotine dependence; Z79.891 Long term (current) use of opiate analgesic; Z88.0 Allergy status to penicillin; Z91.040 Latex allergy status; Z98.84 Bariatric surgery status; Z80.9 Family history of malignant neoplasm, unspecified; Z68.43 Body mass index [BMI] 50.0-59.9, adult
CPT/HCPCS: 74240; 80048; 80051; 82310; 82565; 83735; 84100; 84520; 85025; 88307; 94640; 94760; 94762

== ENCOUNTER → 2017-10-07 | Outpatient (CLI) | payer BC ==
[2017-10-07 13:29] VITALS: BMI 52.1
[2017-10-07 13:37] VITALS: BP 151/83; PULSE 80; RESP 16; TEMP 98.1
--- NOTE | 2017-10-07 14:04 | P.BASOAP ---
Subjective Progress Note Date: 10/07/17 Principal diagnosis: Morbid obesity Patient doing well today. Denies nausea vomiting, no pain, no GERD symptoms. Tolerating diet. Good liquid and protein intake. Surgery was just 2 weeks ago. She is already back to work. Ambulating although still has some left knee pain which is chronic in nature. Excellent weight loss of 14 pounds since surgery. Objective - Vital Signs Vital signs: Vital Signs Temp 98.1 F 10/07/17 13:34 Pulse 80 10/07/17 13:34 Resp 16 10/07/17 13:34 BP 151/83 10/07/17 13:34 Pulse Ox Intake & Output 10/06/17 10/07/17 10/07/17 18:59 06:59 18:59 Weight 125.191 kg - Exam Abdomen: Soft, nondistended, incisions clean and dry, nontender Assessment/Plan (1) Morbid obesity Narrative/Plan: Continue exercise and dietary regimen. We'll see dietitian today. We'll check one month labs in 2 weeks. Plan: Date: 10/07/17 Initial Weight: 130.861 kg Initial BMI: 54.5 Current Weight: 125.191 kg Current BMI: 52.1 Type of Surgery: Total Volume in Band: Previous Volume: Volume Removed: Volume Added: Band Size:
== END | disposition home or self-care (01) ==
LOC: BARWHC3 12:47
PROVIDERS: ATTEND Surgery
DX: E66.01 Morbid (severe) obesity due to excess calories (principal); E55.9 Vitamin D deficiency, unspecified; Z68.43 Body mass index [BMI] 50.0-59.9, adult
CPT/HCPCS: 97803; 99211

== ENCOUNTER → 2017-10-21 | Outpatient (CLI) | payer BC ==
[2017-10-21 15:40] VITALS: BP 161/88; PULSE 75; RESP 16; TEMP 98.6; BMI 52.0
--- NOTE | 2017-10-21 17:06 | P.BASOAP ---
Subjective Progress Note Date: 10/21/17 Objective - Vital Signs Vital signs: Vital Signs Temp 98.6 F 10/21/17 15:38 Pulse 75 10/21/17 15:38 Resp 16 10/21/17 15:38 BP 161/88 10/21/17 15:38 Pulse Ox Intake & Output 10/20/17 10/21/17 10/21/17 18:59 06:59 18:59 Weight 124.738 kg Assessment/Plan Plan: Date: 10/21/17 Subjective Progress Note Date: 10/21/17 Principal diagnosis: Morbid obesity Patient doing well at this time. She would like to try some salad at this point. She is due for one month labs and states that she already had them drawn earlier this morning. Denies heartburn. No nausea or vomiting. Objective - Exam Abdomen: Soft, nontender, nondistended - Labs CBC & Chem 7: 10/21/17 14:45 10/21/17 14:45 Labs: Abnormal Lab Results - Last 24 Hours (Table) 10/21/17 Range/Units 14:45 BUN 18 H (7-17) mg/dL Creatinine 0.50 L (0.52-1.04) mg/dL Glucose 102 H (74-99) mg/dL Assessment/Plan (1) Morbid obesity Narrative/Plan: Patient doing well postoperatively. We'll gradually increase diet. Also plans to increase her exercise level. Check one month labs already drawn earlier today. Follow up 4-6 weeks. Plan: Date: Initial Weight: 130.861 kg Initial BMI: Current Weight: Current BMI: Type of Surgery: Total Volume in Band: Previous Volume: Volume Removed: Volume Added: Band Size: Initial Weight: 130.861 kg Initial BMI: 54.5 Current Weight: 124.738 kg Current BMI: 52.0 Type of Surgery: Total Volume in Band: Previous Volume: Volume Removed: Volume Added: Band Size:
== END | disposition home or self-care (01) ==
LOC: BARWHC3 14:54
PROVIDERS: ATTEND Surgery
DX: E66.01 Morbid (severe) obesity due to excess calories (principal); Z68.43 Body mass index [BMI] 50.0-59.9, adult
CPT/HCPCS: 97803; 99211

== ENCOUNTER → 2017-10-21 | Outpatient (CLI) | payer BC ==
[2017-10-21 15:16] LABS: HCT 39.1 % (34.0-46.0); HGB 12.2 gm/dL (11.4-16.0); MCH 26.6 pg (25.0-35.0); MCHC 31.2 g/dL (31.0-37.0); MCV 85.2 fL (80.0-100.0); Platelet Count 183 k/uL (150-450); RBC 4.59 m/uL (3.80-5.40); RDW 14.2 % (11.5-15.5); WBC 7.1 k/uL (3.8-10.6)
[2017-10-21 15:22] LABS: ALT 25 U/L (9-52); AST 22 U/L (14-36); Albumin 3.5 g/dL (3.5-5.0); Alkaline Phosphatase 85 U/L (38-126); Anion Gap 7 mmol/L; Blood Urea Nitrogen 18 mg/dL (7-17); Carbon Dioxide 30 mmol/L (22-30); Chloride 103 mmol/L (98-107); Glucose 102 mg/dL (74-99); Potassium 3.9 mmol/L (3.5-5.1); Sodium 140 mmol/L (137-145); Total Bilirubin 0.4 mg/dL (0.2-1.3); Total Protein 6.3 g/dL (6.3-8.2)
--- NOTE | 2017-10-21 17:03 | P.BASOAP ---
Subjective Progress Note Date: 10/21/17 Principal diagnosis: Morbid obesity Patient doing well at this time. She would like to try some salad at this point. She is due for one month labs and states that she already had them drawn earlier this morning. Denies heartburn. No nausea or vomiting. Objective - Exam Abdomen: Soft, nontender, nondistended - Labs CBC & Chem 7: 10/21/17 14:45 10/21/17 14:45 Labs: Abnormal Lab Results - Last 24 Hours (Table) 10/21/17 Range/Units 14:45 BUN 18 H (7-17) mg/dL Creatinine 0.50 L (0.52-1.04) mg/dL Glucose 102 H (74-99) mg/dL Assessment/Plan (1) Morbid obesity Narrative/Plan: Patient doing well postoperatively. We'll gradually increase diet. Also plans to increase her exercise level. Check one month labs already drawn earlier today. Follow up 4-6 weeks. Plan: Date: Initial Weight: 130.861 kg Initial BMI: Current Weight: Current BMI: Type of Surgery: Total Volume in Band: Previous Volume: Volume Removed: Volume Added: Band Size:
[2017-10-21 19:31] LABS: Vitamin D 25 Hydroxy 37.5 ng/mL (30.0-100.0)
== END | disposition home or self-care (01) ==
LOC: LABWHC1 14:26
PROVIDERS: ATTEND Surgery
DX: E55.9 Vitamin D deficiency, unspecified (principal); K90.89 Other intestinal malabsorption
CPT/HCPCS: 36415; 80053; 82306; 82607; 83540; 84425; 85027

== ENCOUNTER → 2018-04-07 | Outpatient (CLI) | payer BC ==
[2018-04-07 16:09] VITALS: BP 123/76; PULSE 84; RESP 20; TEMP 98.6; BMI 42.3
[2018-04-07 17:26] LABS: HCT 37.7 % (34.0-46.0); HGB 11.9 gm/dL (11.4-16.0); Hypochromasia Slight; MCH 26.3 pg (25.0-35.0); MCHC 31.4 g/dL (31.0-37.0); MCV 83.7 fL (80.0-100.0); Mean Platelet Volume 6.8; Platelet Count 231 k/uL (150-450); RBC 4.51 m/uL (3.80-5.40); RDW 15.7 % (11.5-15.5); WBC 7.7 k/uL (3.8-10.6)
[2018-04-07 17:37] LABS: ALT 33 U/L (9-52); AST 22 U/L (14-36); Albumin 3.8 g/dL (3.5-5.0); Alkaline Phosphatase 129 U/L (38-126); Anion Gap 5 mmol/L; Blood Urea Nitrogen 22 mg/dL (7-17); Calcium 9.2 mg/dL (8.4-10.2); Carbon Dioxide 28 mmol/L (22-30); Chloride 105 mmol/L (98-107); Glucose 100 mg/dL (74-99); Potassium 4.3 mmol/L (3.5-5.1); Sodium 138 mmol/L (137-145); Total Bilirubin 0.5 mg/dL (0.2-1.3); Total Protein 6.8 g/dL (6.3-8.2)
--- NOTE | 2018-04-07 23:23 | P.BASOAP ---
Subjective Progress Note Date: 04/07/18 Principal diagnosis: Morbid obesity Patient has had relatively poor follow-up. Weight loss has done fairly well. Denies nausea or vomiting. She is taking her multivitamins. Still taking antiacid therapy daily because of reflux at times. Reflux is well-controlled with antiacids however. She is due for 6 month labs. Objective - Vital Signs Vital signs: Vital Signs Temp 98.6 F 04/07/18 16:03 Pulse 84 04/07/18 16:03 Resp 20 04/07/18 16:03 BP 123/76 04/07/18 16:03 Pulse Ox Intake & Output 04/07/18 04/07/18 04/08/18 06:59 18:59 06:59 Weight 104.871 kg - Exam Abdomen: Soft, nontender, nondistended - Labs CBC & Chem 7: 04/07/18 17:00 04/07/18 17:00 Labs: Abnormal Lab Results - Last 24 Hours (Table) 04/07/18 04/07/18 Range/Units 17:00 17:00 RDW 15.7 H (11.5-15.5) % BUN 22 H (7-17) mg/dL Creatinine 0.50 L (0.52-1.04) mg/dL Glucose 100 H (74-99) mg/dL Alkaline Phosphatase 129 H (38-126) U/L Assessment/Plan (1) Morbid obesity Narrative/Plan: Continue dietary and exercise regimen. Continue antiacid therapy. We'll check 6 month labs. Plan: Date: 04/07/18 Initial Weight: 130.861 kg Initial BMI: 52.7 Current Weight: 104.871 kg Current BMI: 42.3 Type of Surgery: Total Volume in Band: Previous Volume: Volume Removed: Volume Added: Band Size:
[2018-04-08 02:39] LABS: Vitamin D 25 Hydroxy 39.9 ng/mL (30.0-100.0)
== END | disposition home or self-care (01) ==
LOC: BARWHC3 15:25
PROVIDERS: ATTEND Surgery
DX: E66.01 Morbid (severe) obesity due to excess calories (principal); Z68.41 Body mass index [BMI] 40.0-44.9, adult
CPT/HCPCS: 36415; 80053; 82306; 82607; 83540; 84425; 85027; 97803; 99211

== ENCOUNTER 2018-05-20 08:22 | Inpatient (IN) | payer BC ==
[2018-05-20] MEDS ORDERED: SODIUM CHLORIDE 0.9% 1,000 ML IV ONE (08:55)
--- NOTE | 2018-05-20 08:56 | ED ---
Abdominal Pain HPI - General Chief Complaint: Abdominal Pain Stated Complaint: ABDOMINAL PAIN, BOWEL OBSTRUCTION Time Seen by Provider: 05/20/18 08:25 Source: patient, RN notes reviewed, old records reviewed Mode of arrival: EMS Limitations: no limitations - History of Present Illness Initial Comments: This patient's a 63-year-old female comes emergency Department as a transfer from [facility] with chief complaint of small bowel obstruction. Patient reports she had a gastric sleeve surgery by Dr. machado in September of this year. Prior to that she did have a lap band surgery 10 years ago as well as a total hysterectomy. Patient states that she started to have abdominal pain and distention and vomiting yesterday. Patient was given IV fluids, pain medication nausea medication. She states that her vomiting episode subsided afterwards. Patient states that she initially wanted refused the NG tube. She denies any fever or chills. Last bowel movement was on Friday. She states she's not been passing gas within the past 24 hours. - Related Data Home Medications Medication Instructions Recorded Confirmed LORazepam [Ativan] 0.5 mg PO TID PRN 05/22/17 05/20/18 Propranolol [Inderal] 10 mg PO DAILY 05/22/17 05/20/18 Ranitidine HCl [Zantac] 150 mg PO HS 05/22/17 05/20/18 Acetaminophen [Tylenol 8 Hour] 650 mg PO BID 05/20/18 05/20/18 Calcium Carbonate/Vitamin D3 1 tab PO DAILY 05/20/18 05/20/18 [Caltrate 600 Plus D3 Tablet] Cholecalciferol [Vitamin D3] 1,000 unit PO DAILY 05/20/18 05/20/18 HYDROcodone/APAP 5-325MG [[place] 1 tab PO TID PRN 05/20/18 05/20/18 5-325] Omeprazole 20 mg PO DAILY 05/20/18 05/20/18 QUEtiapine [SEROquel] 25 mg PO HS 05/20/18 05/20/18 Allergies Allergy/AdvReac Type Severity Reaction Status Date / Time latex Allergy Rash/Hives Verified 05/20/18 09:21 Penicillins Allergy Rash/Hives Verified 05/20/18 09:21 Review of Systems ROS Statement: Those systems with pertinent positive or pertinent negative responses have been documented in the HPI. ROS Other: All systems not noted in ROS Statement are negative. Past Medical History Past Medical History: GERD/Reflux, Hypertension, Osteoarthritis (OA), Thyroid Disorder Additional Past Medical History / Comment(s): HAD RADIATION PILL FOR HYPERTHYROID, recent bronchitis now resolved History of Any Multi-Drug Resistant Organisms: None Reported Past Surgical History: Bariatric Surgery, Hysterectomy, Joint Replacement, Orthopedic Surgery Additional Past Surgical History / Comment(s): lap band, right knee replaced, ORIF right leg, ovarian cystectomy, ORIF right leg, colonoscopy. Sep 2017: Laparoscopic gastric sleeve operation performed by Dr. Jimmy Wilkins Past Anesthesia/Blood Transfusion Reactions: Motion Sickness Past Psychological History: Anxiety Smoking Status: Former smoker Past Alcohol Use History: None Reported Past Drug Use History: None Reported - Past Family History Mother Family Medical History: Cancer General Exam - General Exam Comments Initial Comments: Patient is a well-appearing 63-year-old female. No significant distress. Limitations: no limitations General appearance: alert, in no apparent distress Head exam: Present: atraumatic, normocephalic, normal inspection Eye exam: Present: normal appearance, PERRL, EOMI. Absent: scleral icterus, conjunctival injection, periorbital swelling Pupils: Absent: normal accommodation ENT exam: Present: normal exam, mucous membranes moist Neck exam: Present: normal inspection. Absent: tenderness, meningismus, lymphadenopathy Respiratory exam: Present: normal lung sounds bilaterally. Absent: respiratory distress, wheezes, rales, rhonchi, stridor Cardiovascular Exam: Present: regular rate, normal rhythm, normal heart sounds. Absent: systolic murmur, diastolic murmur, rubs, gallop, clicks GI/Abdominal exam: Present: soft, tenderness (Minimal right lower quadrant tenderness. No significant distention at this time.), normal bowel sounds. Absent: guarding, rebound, rigid Extremities exam: Present: normal inspection, full ROM, normal capillary refill. Absent: tenderness, pedal edema, joint swelling, calf tenderness Back exam: Present: normal inspection Neurological exam: Present: alert, oriented X3, CN II-XII intact Psychiatric exam: Present: normal affect, normal mood Course Vital Signs 05/20/18 08:30 Temperature 98.8 F Pulse Rate 78 Respiratory 18 Rate Blood Pressure 106/59 O2 Sat by Pulse 98 Oximetry Medical Decision Making - Medical Decision Making Patient is a 63-year-old female presents recent referral or a transfer from [facility]. Patient was found to have a small bowel instruction. History of gastric sleeve surgery and I be very. Patient's lab work shows BUN 23, creatinine of 0.48, sodium 138. Potassium of 4.1. Chloride 100. CO2 is 26. AST was 19. ALT is 21. ALP is 127. Bili was 0.86. Hemoglobin of 14.0. Platelets 216. White blood cell count was 4.9. Patient has no active vomiting. She appears comfortable at this time. Patient was refusing NG tube. Case discussed Dr. Moran who discussed the case with patient's surgeon Dr. Wilkins. We'll admit the Patient, nothing by mouth. - Radiology Data Radiology results: report reviewed CT shows evidence of small bowel obstruction. Transition zone is likely related to a friend that appears to be near the midline pelvis just below the pelvic insight. Likely secondary to adhesions. There is evidence of abdominal pelvic ascites. Postsurgical changes involving the stomach. Disposition Clinical Impression: SBO (small bowel obstruction) Disposition: ADMITTED IP TO THIS HOSP Condition: Stable Is patient prescribed a controlled substance at d/c from ED?: No Referrals: Nonstaff,Physician [Primary Care Provider] - 1-2 days Time of Disposition: 08:56
[2018-05-20] MEDS: SODIUM CHLORIDE 0.9% 1,000 ML IV SCH (09:26)
[2018-05-20] MEDS ORDERED: ONDANSETRON 4 MG/2 ML VIAL IVP PRN (09:43)
[2018-05-20] MEDS ORDERED: NALOXONE 0.4 MG/ML 1 ML VIAL IV PRN (09:43)
[2018-05-20] MEDS ORDERED: HYDROmorphone 1 MG/ML 1 ML SYRINGE IVP PRN (09:43)
[2018-05-20] MEDS ORDERED: MORPHINE SULFATE 4 MG/ML SYRINGE IV PRN (09:43)
--- NOTE | 2018-05-20 10:10 | P.GSHP ---
History of Present Illness H&P Date: 05/20/18 Chief Complaint: Small bowel obstruction Patient on to our service. She contacted us by phone yesterday with complaints of nausea and abdominal pain that began approximately one day prior to that. Some dry heaves. She believes is related to ingesting a large volume of almonds in a short period of time. She is having some normal stools however somewhat less frequent. Pain is mostly lower abdomen. No GERD symptoms. No history of similar events. She went to the ER in [place]. CAT scan abdomen shows a small bowel obstruction. She was transferred to our emergency department. Labs are pending currently. She actually feels better at this time. She had a bowel movement this morning. She is thirsty and would like to try liquids to see if she can pass the almonds. CAT scan was reviewed with radiology. Small bowel obstruction is present. There is some stool sign in the small bowel in the pelvis. There is free fluid present. No free air seen. - Review of Systems Comment: The patient denies any acute changes in vision or hearing, no dysphagia or odynophagia, no chest pain or shortness of breath, no dysuria or hematuria, no headache, no runny nose, no rectal bleeding or melena, no unexplained weight loss Past Medical History Past Medical History: GERD/Reflux, Hypertension, Osteoarthritis (OA), Pneumonia , Thyroid Disorder Additional Past Medical History / Comment(s): Pt states she has only once had HTN, arthrititis in low back and neck, frequent bronchitis, hyperthyroid tx with radiation pill, bilateral shoulder pain, past R shoulder dislocation. 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 Past Psychological History: Anxiety, Depression Additional Psychological History / Comment(s): Pt resides with her spouse of 12 yrs. She is independent. She works in sales and realty. Smoking Status: Former smoker Past Alcohol Use History: None Reported Additional Past Alcohol Use History / Comment(s): Pt started smoking in 1972 and quit in 1985 Past Drug Use History: None Reported - Past Family History Mother Family Medical History: Cancer Additional Family Medical History / Comment(s): Mother had colon and kidney cancer with surgery and thought to have "gotten it all". Five years later she of metastic cancer. Medications and Allergies Home Medications Medication Instructions Recorded Confirmed Type LORazepam [Ativan] 0.5 mg PO TID PRN 05/22/17 05/20/18 History Propranolol [Inderal] 10 mg PO DAILY 05/22/17 05/20/18 History Ranitidine HCl [Zantac] 150 mg PO HS 05/22/17 05/20/18 History Acetaminophen [Tylenol 8 Hour] 650 mg PO BID 05/20/18 05/20/18 History Calcium Carbonate/Vitamin D3 1 tab PO DAILY 05/20/18 05/20/18 History [Caltrate 600 Plus D3 Tablet] Cholecalciferol [Vitamin D3] 1,000 unit PO DAILY 05/20/18 05/20/18 History HYDROcodone/APAP 5-325MG [[place] 1 tab PO TID PRN 05/20/18 05/20/18 History 5-325] Omeprazole 20 mg PO DAILY 05/20/18 05/20/18 History QUEtiapine [SEROquel] 25 mg PO HS 05/20/18 05/20/18 History Allergies Allergy/AdvReac Type Severity Reaction Status Date / Time latex Allergy Rash/Hives Verified 05/20/18 09:21 Penicillins Allergy Rash/Hives Verified 05/20/18 09:21 Surgical - Exam Vital Signs Temp Pulse Resp BP Pulse Ox 98.8 F 78 18 106/59 98 05/20/18 08:30 05/20/18 08:30 05/20/18 08:30 05/20/18 08:30 05/20/18 08:30 Physical exam: General: Well-developed, well-nourished HEENT: Normocephalic, sclerae nonicteric Abdomen: Mild lower abdominal tenderness, nondistended Extremities: No edema Neuro: Alert and oriented Assessment and Plan (1) SBO (small bowel obstruction) Narrative/Plan: Will admit for observation. Repeat abdominal x-rays tomorrow. Trial of clear liquid diet. Medical consultation for medical management. Current Visit: Yes Status: Acute Code(s): K56.609 - UNSP INTESTNL OBST, UNSP TO PARTIAL VERSUS COMPLETE OBST SNOMED Code(s): 306950068
[2018-05-20 11:09] LABS: Anisocytosis Slight; Basophils % (A) 0 %; Eosinophils % (A) 1 %; HCT 39.4 % (34.0-46.0); HGB 12.8 gm/dL (11.4-16.0); Lymphocytes # (A) 1.6 k/uL (1.0-4.8); Lymphocytes % (A) 23 %; MCH 27.2 pg (25.0-35.0); MCHC 32.4 g/dL (31.0-37.0); MCV 83.9 fL (80.0-100.0); Mean Platelet Volume 6.7; Monocytes # (A) 0.5 k/uL (0-1.0); Monocytes % (A) 7 %; Neutrophils # (A) 4.8 k/uL (1.3-7.7); Neutrophils % (A) 67 %; Platelet Count 202 k/uL (150-450); RBC 4.69 m/uL (3.80-5.40); RDW 16.9 % (11.5-15.5); WBC 7.2 k/uL (3.8-10.6)
[2018-05-20 11:12] LABS: ALT 22 U/L (9-52); AST 15 U/L (14-36); Albumin 3.2 g/dL (3.5-5.0); Alkaline Phosphatase 90 U/L (38-126); Amylase 38 U/L (30-110); Anion Gap 4 mmol/L; Blood Urea Nitrogen 11 mg/dL (7-17); Calcium 8.8 mg/dL (8.4-10.2); Carbon Dioxide 29 mmol/L (22-30); Chloride 106 mmol/L (98-107); Glucose 91 mg/dL (74-99); Lipase 52 U/L (23-300); Potassium 3.9 mmol/L (3.5-5.1); Sodium 139 mmol/L (137-145); Total Bilirubin 0.6 mg/dL (0.2-1.3); Total Protein 5.9 g/dL (6.3-8.2)
[2018-05-20 12:37] VITALS: BMI 41.1
[2018-05-20] MEDS: HEPARIN SODIUM,PORCINE 5,000 UNIT/ML 1 ML VIAL SQ SCH (16:23)
[2018-05-20] MEDS ORDERED: LORazepam 0.5 MG TAB PO PRN (21:21)
[2018-05-21] MEDS: HEPARIN SODIUM,PORCINE 5,000 UNIT/ML 1 ML VIAL SQ SCH ×4 (00:09→23:08)
[2018-05-21 08:19] LABS: Anion Gap 5 mmol/L; Blood Urea Nitrogen 8 mg/dL (7-17); Calcium 8.6 mg/dL (8.4-10.2); Carbon Dioxide 29 mmol/L (22-30); Chloride 107 mmol/L (98-107); Glucose 90 mg/dL (74-99); Potassium 3.5 mmol/L (3.5-5.1); Sodium 141 mmol/L (137-145)
[2018-05-21 08:20] LABS: Anisocytosis Slight; Basophils # (A) 0.1 k/uL (0-0.2); Basophils % (A) 1 %; Eosinophils # (A) 0.1 k/uL (0-0.7); Eosinophils % (A) 2 %; HCT 38.7 % (34.0-46.0); HGB 12.4 gm/dL (11.4-16.0); Hypochromasia Slight; Lymphocytes # (A) 2.3 k/uL (1.0-4.8); Lymphocytes % (A) 35 %; MCH 27.7 pg (25.0-35.0); MCHC 32.1 g/dL (31.0-37.0); MCV 86.5 fL (80.0-100.0); Mean Platelet Volume 6.9; Monocytes # (A) 0.4 k/uL (0-1.0); Monocytes % (A) 7 %; Neutrophils # (A) 3.5 k/uL (1.3-7.7); Neutrophils % (A) 54 %; Platelet Count 195 k/uL (150-450); RBC 4.47 m/uL (3.80-5.40); RDW 16.7 % (11.5-15.5); WBC 6.5 k/uL (3.8-10.6)
[2018-05-21] MEDS: SODIUM CHLORIDE 0.9% 1,000 ML IV SCH ×4 (09:26→23:09)
--- NOTE | 2018-05-21 10:19 | XR ---
2 view abdomen HISTORY: Follow-up bowel obstruction 2 views of the abdomen on [address] abdomen pelvis 05/20/2018 from outside institu tion. There are gas-filled loops of small bowel and colon. There is no pneumoperitoneum. Lung bases are rajesh ar. Air-fluid levels noted on the upright exam. Postop changes noted in the upper abdomen. There is a spinal curvature, degenerative disc changes in the visualized spine. Probable phleboliths in the pel vis. IMPRESSION: Correlate for ileus or enteritis, obstruction not excluded.
[2018-05-21] MEDS: PANTOPRAZOLE 40 MG/10 ML VIAL IV SCH (11:06)
--- NOTE | 2018-05-21 15:27 | P.PN ---
Subjective Progress Note Date: 05/21/18 Principal diagnosis: Small bowel obstruction Patient did well overnight. She had 4 looser bowel movements. Mild nausea last night but now she is hungry without nausea. Denies pain currently. Today' s x-rays appear improved. White blood cell count remains normal. Objective - Vital Signs Vital signs: Vital Signs Temp 98.0 F 05/21/18 14:20 Pulse 60 05/21/18 14:20 Resp 16 05/21/18 07:00 BP 122/82 05/21/18 14:20 Pulse Ox 96 05/21/18 14:20 Intake & Output 05/20/18 05/21/18 05/21/18 18:59 06:59 18:59 Intake Total 1300 2600 1800 Balance 1300 2600 1800 Weight 102.058 kg 102.058 kg Intake: Intake, IV Titration 1600 Amount Sodium Chloride 0.9% 1, 1600 000 ml @ 100 mls/hr IV . Q10H AKILA Rx#:[id number] Oral 1300 1000 1800 Other: # Voids 1 3 # Bowel Movements 3 2 - Exam Abdomen: Soft, nontender, nondistended - Labs CBC & Chem 7: 05/21/18 07:45 05/21/18 07:45 Labs: Abnormal Lab Results - Last 24 Hours (Table) 05/21/18 Range/Units 07:45 RDW 16.7 H (11.5-15.5) % Assessment and Plan (1) SBO (small bowel obstruction) Narrative/Plan: Advance diet to full liquids. Continue ambulation. Probable discharge tomorrow morning if tolerating diet. Follow-up in bariatric clinic. Current Visit: Yes Status: Acute Code(s): K56.609 - UNSP INTESTNL OBST, UNSP TO PARTIAL VERSUS COMPLETE OBST SNOMED Code(s): 316299617
[2018-05-22 07:41] VITALS: BP 135/84; PULSE 87; RESP 18; TEMP 98.7
[2018-05-22] MEDS: HEPARIN SODIUM,PORCINE 5,000 UNIT/ML 1 ML VIAL SQ SCH (08:04)
[2018-05-22] MEDS: PANTOPRAZOLE 40 MG/10 ML VIAL IV SCH (08:04)
--- NOTE | 2018-05-22 08:33 | P.DS ---
Providers Date of admission: 05/21/18 14:05 Expected date of discharge: 05/22/18 Attending physician: Venkata Wilkins Primary care physician: Physician Nonsta Hospital Course: Pleasant 63-year-old female presented as a transfer from emergency room in [place] the patient was being seen for nausea vomiting abdominal pain had begun the day before. Patient stated that she had prior to the incident eaten large- volume of almonds in the short period of time. Stated that after eating the almonds developed the intense abdominal discomfort. Patient went to ER in [place] was transferred to [facility]. CAT scan of the abdomen showed a small bowel obstruction. No free air. Patient was placed on bowel rest nausea sensation resolved patient at the time of discharge was tolerating bariatric diet had several loose bowel movements abdominal pain gone x-ray of the abdomen showed an improvement white count was normal afebrile on the day of discharge abdomen was soft up ambulating in the unit anxious to be discharged home plan for the patient to follow-up in the bariatric clinic next week Impression discharge diagnosis Present on admission abdominal pain with nausea suspect due to a small bowel obstruction History of gastric sleeve done in 2006 CAT scan of the abdomen pelvis done at another facility report and imaging shows a small bowel obstruction resolved The above impression and plan of care have been discussed and directed by signing physician. Bettie Pinon nurse practitioner acting as scribe for signing physician. Patient Condition at Discharge: Stable Plan - Discharge Summary Discharge Rx Participant: No New Discharge Prescriptions: Continue LORazepam [Ativan] 0.5 mg PO TID PRN PRN Reason: Anxiety Ranitidine HCl [Zantac] 150 mg PO HS Propranolol [Inderal] 10 mg PO DAILY Acetaminophen [Tylenol 8 Hour] 650 mg PO BID Calcium Carbonate/Vitamin D3 [Caltrate 600 Plus D3 Tablet] 1 tab PO DAILY Cholecalciferol [Vitamin D3] 1,000 unit PO DAILY HYDROcodone/APAP 5-325MG [[place] 5-325] 1 tab PO TID PRN PRN Reason: Pain Omeprazole 20 mg PO DAILY Discharge Medication List LORazepam [Ativan] 0.5 mg PO TID PRN 05/22/17 [History] Propranolol [Inderal] 10 mg PO DAILY 05/22/17 [History] Ranitidine HCl [Zantac] 150 mg PO HS 05/22/17 [History] Acetaminophen [Tylenol 8 Hour] 650 mg PO BID 05/20/18 [History] Calcium Carbonate/Vitamin D3 [Caltrate 600 Plus D3 Tablet] 1 tab PO DAILY [History] Cholecalciferol [Vitamin D3] 1,000 unit PO DAILY 05/20/18 [History] HYDROcodone/APAP 5-325MG [[place] 5-325] 1 tab PO TID PRN 05/20/18 [History] Omeprazole 20 mg PO DAILY 05/20/18 [History] Follow up Appointment(s)/Referral(s): Venkata Wilkins MD [Medical Doctor] - 2 Weeks Nonstaff,Physician [Primary Care Provider] - 1-2 days Activity/Diet/Wound Care/Special Instructions: Continue on a low fiber bariatric diet Discharge Disposition: HOME SELF-CARE
== END 2018-05-22 09:56 | disposition home or self-care (01) | DRG 390 ==
LOC: EC 08:22 → 3SUR 09:27 → OBSVTOIN 05-21 14:05
PROVIDERS: ADMIT Surgery; ATTEND Surgery
DX: K56.609 Unspecified intestinal obstruction, unspecified as to partial versus complete obstruction (principal); F32.9 Major depressive disorder, single episode, unspecified; F41.9 Anxiety disorder, unspecified; I10 Essential (primary) hypertension; K21.9 Gastro-esophageal reflux disease without esophagitis; E07.9 Disorder of thyroid, unspecified; M47.9 Spondylosis, unspecified; Z79.899 Other long term (current) drug therapy; Z87.891 Personal history of nicotine dependence; Z90.710 Acquired absence of both cervix and uterus; Z96.653 Presence of artificial knee joint, bilateral; Z98.84 Bariatric surgery status; Z88.0 Allergy status to penicillin; Z91.040 Latex allergy status; Z92.3 Personal history of irradiation; Z80.51 Family history of malignant neoplasm of kidney; Z80.0 Family history of malignant neoplasm of digestive organs
CPT/HCPCS: 74019; 80048; 80053; 82150; 83605; 83690; 85025; 96360; 96361; 99285

== ENCOUNTER → 2019-03-23 | Outpatient (CLI) | payer BC ==
--- NOTE | 2019-03-23 15:48 | P.BASOAP ---
Subjective Progress Note Date: 03/23/19 Principal diagnosis: Morbid obesity Patient returns today for follow-up. She has not been seen since last year when she had a small bowel obstruction. She has gained 4 pounds since last year. Still takes antiacids however now takes them on an as-needed basis. No vomiting. No pain. No recent labs. Objective - Vital Signs Vital signs: Vital Signs Temp 97.9 F 03/23/19 14:32 Pulse 66 03/23/19 14:32 Resp 16 03/23/19 14:32 BP 147/76 03/23/19 14:32 Pulse Ox Intake & Output 03/22/19 03/23/19 03/23/19 18:59 06:59 18:59 Weight 105.687 kg - Exam Physical exam: General: Well-developed, well-nourished HEENT: Normocephalic, sclerae nonicteric Abdomen: Nontender, nondistended Extremities: No edema Neuro: Alert and oriented Assessment/Plan (1) Morbid obesity Narrative/Plan: Patient doing fairly well although has not lost as much weight as she and I would like. She will continue her exercise and dietary regimen. Continue as needed antiacid therapy. Check labs at this time since she is overdue for her 1 year labs. Patient states she would like to combine the orders from our labs with her primary care physician's lab order. Patient should follow up annually. Plan: Date: 03/23/19 Initial Weight: 130.861 kg Initial BMI: 54.5 Current Weight: 105.687 kg Current BMI: 44.0 Type of Surgery: Total Volume in Band: Previous Volume: Volume Removed: Volume Added: Band Size:
== END | disposition home or self-care (01) ==
CPT/HCPCS: 99211